=== PATIENT | male | born 1940 | race Hispanic/Latino ===

== ENCOUNTER → 2018-01-18 | Outpatient (CLI) | payer MEDICARE ==
[~2018-01-18] MED LIST: FESO8TAB PO; TERAZOSIN PO
== END | disposition home or self-care (01) ==
LOC: RAH 12:19
PROVIDERS: ATTEND Physical Medicine & Rehabilitation
DX: M51.17 Intervertebral disc disorders with radiculopathy, lumbosacral region (principal); M47.22 Other spondylosis with radiculopathy, cervical region; M48.02 Spinal stenosis, cervical region; M25.78 Osteophyte, vertebrae; M43.16 Spondylolisthesis, lumbar region; M48.07 Spinal stenosis, lumbosacral region
CPT/HCPCS: 72050; 72110

== ENCOUNTER → 2019-09-10 | Outpatient (CLI) | payer MEDICARE ==
[~2019-09-10] MED LIST changes: +REGADENOSON 0.4 MG/5 ML PF SYG IVP SCH
== END | disposition home or self-care (01) ==
LOC: SHCH 07:35
PROVIDERS: ATTEND Internal Medicine Cardiovascular Disease
DX: I20.0 Unstable angina (principal)
CPT/HCPCS: 78452; 93017; 96374; A9500 ×2; J2785

== ENCOUNTER → 2019-09-18 | Outpatient (CLI) | payer MEDICARE ==
[~2019-09-18] MED LIST changes: -REGADENOSON 0.4 MG/5 ML PF SYG IVP SCH
== END | disposition home or self-care (01) ==
LOC: SHCH 13:31
PROVIDERS: ATTEND Internal Medicine Cardiovascular Disease
DX: I10 Essential (primary) hypertension (principal)
CPT/HCPCS: 93306; 93356

== ENCOUNTER → 2022-02-01 | Outpatient (CLI) | payer MEDICARE | END | disposition home or self-care (01) | LOC: SHCH 11:02 | PROVIDERS: ATTEND Internal Medicine Cardiovascular Disease | DX: I70.293 Other atherosclerosis of native arteries of extremities, bilateral legs (principal) | CPT/HCPCS: 93925 ==

== ENCOUNTER 2022-05-24 13:56 | Emergency (ER) | payer MEDICARE ==
[~2022-05-24] VITALS: Ht 182.9 cm; Wt 99.8 kg
[2022-05-24 14:16] LABS: BASOPHILS % (AUTO) 0.3 % (0.0-5.0); EOSINOPHILS % (AUTO) 1.7 % (0.0-8.0); HEMATOCRIT 39.8 % (42-54); LYMPHOCYTES % (AUTO) 22.6 % (21.0-51.0); MEAN CORPUSCULAR HEMOGLOBIN 31.5 pg (27.0-33.0); MEAN CORPUSCULAR HGB CONC 35.4 g/dL (32.0-36.0); MONOCYTES % (AUTO) 9.7 % (3.0-13.0); NEUTROPHILS % (AUTO) 65.4 % (40.0-77.0); PLATELET COUNT (AUTO) 178 K/uL (130-400); RED BLOOD CELL COUNT(AUTO) 4.47 MIL/uL (4.50-6.20); RED CELL DISTRIBUTION WIDTH 12.3 % (11.0-15.5); WHITE BLOOD COUNT (AUTO) 5.8 K/uL (4.8-10.8)
[2022-05-24 14:33] LABS: INR 0.96 (0.85-1.15); PROTHROMBIN TIME 10.5 SEC (9.6-11.6)
[2022-05-24 14:34] LABS: PARTIAL THROMBOPLASTIN TIME 29.1 SEC (26.3-35.5)
[2022-05-24 14:39] LABS: B-TYPE NATRIURETIC PEPTIDE 107 pg/mL (0-100)
[2022-05-24 14:45] LABS: CREATININE 1.2 mg/dL (0.5-1.5); POTASSIUM 3.9 mmol/L (3.5-5.1)
[2022-05-24 14:54] LABS: ALBUMIN 4.1 g/dL (3.5-5.0); TOTAL PROTEIN, SERUM 7.5 g/dL (6.0-8.3)
[2022-05-24] MEDS ORDERED: CLOPIDOGREL 75MG TAB PO STA (15:01)
[2022-05-24] MEDS ORDERED: ASPIRIN 81MG CHEW TAB PO STA (15:01)
[2022-05-24] MEDS ORDERED: ATORVASTATIN 40 MG TABLET PO STA (15:01)
[2022-05-24] MEDS ORDERED: IOHEXOL 350 MG/ML 100ML INFUS..BTL IV ONE (15:11)
[2022-05-24 16:12] LABS: APPEARANCE,URINE CLEAR (CLEAR); BILIRUBIN,URINE NEGATIVE (NEGATIVE); COLOR,URINE YELLOW (YELLOW); GLUCOSE, URINE (UA) NEGATIVE (NEGATIVE); KETONES,URINE NEGATIVE (NEGATIVE); LEUKOCYTE ESTERASE ,URINE NEGATIVE Leu/uL (NEGATIVE); NITRATE,URINE NEGATIVE (NEGATIVE); OCCULT BLOOD,URINE NEGATIVE (NEGATIVE); PROTEIN,URINE NEGATIVE (NEGATIVE); UROBILINOGEN,URINE 0.2 mg/dL (0.2-1.0)
[2022-05-24] MEDS ORDERED: GADOTERATE MEGLUMINE 10 MMOL/20 ML VIAL IV ONE (18:34)
[2022-05-24] MEDS ORDERED: LORAZEPAM 2 MG/ML 1 ML VIAL ONE (18:42)
[2022-05-24] MEDS ORDERED: LORAZEPAM 2 MG/ML 1 ML VIAL IVP ONE (19:00)
[2022-05-25] MEDS ORDERED: HYDRALAZINE 20MG/ML VIAL IV ONE (01:30)
[2022-05-25 12:04] VITALS: BP 166/78
[2022-05-25] MEDS ORDERED: ASPIRIN 81 MG EC TAB PO ONE (14:00)
== END 2022-05-25 20:11 | disposition left against medical advice (07) ==
LOC: EDH 13:56
DX: G45.9 Transient cerebral ischemic attack, unspecified (principal); I10 Essential (primary) hypertension; E78.5 Hyperlipidemia, unspecified; Z79.82 Long term (current) use of aspirin; Z20.822 Contact with and (suspected) exposure to COVID-19
CPT/HCPCS: 70551; 99285; 70450; 96374; 71045; 87635; 82550; 83721; 84484; 80053; 83880; 85025; 85610; 85730; 82948; 81003; 36415; 70496; 70498; 70549; 93005; 96375; C9803; J2060; Q9967; A9575; J0360

== ENCOUNTER → 2022-10-14 | Outpatient (CLI) | payer MEDICARE ==
[2022-10-14 13:56] LABS: BASOPHILS % (AUTO) 0.3 % (0.0-5.0); EOSINOPHILS % (AUTO) 2.4 % (0.0-8.0); HEMATOCRIT 36.2 % (42-54); LYMPHOCYTES % (AUTO) 18.6 % (21.0-51.0); MEAN CORPUSCULAR HEMOGLOBIN 30.4 pg (27.0-33.0); MEAN CORPUSCULAR HGB CONC 32.3 g/dL (32.0-36.0); MONOCYTES % (AUTO) 8.6 % (3.0-13.0); NEUTROPHILS % (AUTO) 69.5 % (40.0-77.0); PLATELET COUNT (AUTO) 188 K/uL (130-400); RED BLOOD CELL COUNT(AUTO) 3.85 MIL/uL (4.50-6.20); WHITE BLOOD COUNT (AUTO) 6.3 K/uL (4.8-10.8)
[2022-10-14 14:21] LABS: ALBUMIN 3.7 g/dL (3.5-5.0); CREATININE 1.6 mg/dL (0.5-1.5); POTASSIUM 4.6 mmol/L (3.5-5.1)
== END | disposition home or self-care (01) ==
LOC: LAB 10:39
PROVIDERS: ATTEND Physician Assistant
DX: I25.810 Atherosclerosis of coronary artery bypass graft(s) without angina pectoris (principal)
CPT/HCPCS: 36415; 80053; 85025

== ENCOUNTER → 2024-01-02 | Outpatient (CLI) | payer OTHER, MEDICARE | END | disposition home or self-care (01) | LOC: SHCH 13:00 | PROVIDERS: ATTEND Internal Medicine Cardiovascular Disease | DX: I70.293 Other atherosclerosis of native arteries of extremities, bilateral legs (principal) | CPT/HCPCS: 93925 ==

== ENCOUNTER → 2024-01-24 | Outpatient (CLI) | payer OTHER, MEDICARE ==
[~2024-01-24] MED LIST changes: +IOHEXOL 350 MG/ML 100ML INFUS..BTL IV ONE; +IOHEXOL-350 50ML VIAL IV ONE
== END | disposition home or self-care (01) ==
LOC: RAH 08:24 → EDSTATUS 08:30
PROVIDERS: ATTEND Internal Medicine Cardiovascular Disease
DX: I70.203 Unspecified atherosclerosis of native arteries of extremities, bilateral legs (principal); I70.0 Atherosclerosis of aorta; K57.30 Diverticulosis of large intestine without perforation or abscess without bleeding
CPT/HCPCS: 75635; Q9967 ×2

== ENCOUNTER → 2024-01-26 | Outpatient (CLI) | payer OTHER, MEDICARE ==
[~2024-01-26] MED LIST changes: -IOHEXOL 350 MG/ML 100ML INFUS..BTL IV ONE; -IOHEXOL-350 50ML VIAL IV ONE
[2024-01-26 12:07] LABS: BASOPHILS # (AUTO) 0.03 K/uL (0.00-0.20); BASOPHILS % (AUTO) 0.6 % (0.0-5.0); EOSINOPHILS # (AUTO) 0.15 K/uL (0.00-0.70); HEMATOCRIT 36.6 % (42-54); IMMATURE GRANULOCYTE ABSOLUTE 0.04 K/uL (0-1); LYMPHOCYTES # (AUTO) 1.1 K/uL (1.0-4.8); LYMPHOCYTES % (AUTO) 21.5 % (21.0-51.0); MEAN CORPUSCULAR HEMOGLOBIN 31.6 pg (27.0-33.0); MEAN CORPUSCULAR HGB CONC 34.2 g/dL (32.0-36.0); MEAN CORPUSCULAR VOLUME 92.4 fL (79-99); MONOCYTES # (AUTO) 0.5 K/uL (0.1-1.0); MONOCYTES % (AUTO) 9.4 % (3.0-13.0); NEUTROPHILS # (AUTO) 3.2 K/uL (1.8-7.7); NEUTROPHILS % (AUTO) 64.7 % (40.0-77.0); PLATELET COUNT (AUTO) 183 K/uL (130-400); RED BLOOD CELL COUNT(AUTO) 3.96 MIL/uL (4.50-6.20); RED CELL DISTRIBUTION WIDTH 13.2 % (11.0-15.5)
[2024-01-26 12:15] LABS: INR 1.02 (0.85-1.15)
[2024-01-26 12:17] LABS: PARTIAL THROMBOPLASTIN TIME 32.7 SEC (26.3-35.5)
[2024-01-26 12:24] LABS: CREATININE 1.2 mg/dL (0.5-1.3); POTASSIUM 4.8 mmol/L (3.5-5.1)
== END | disposition home or self-care (01) ==
LOC: LAB 09:45
PROVIDERS: ATTEND Internal Medicine Cardiovascular Disease
DX: I10 Essential (primary) hypertension (principal); I73.9 Peripheral vascular disease, unspecified; I25.810 Atherosclerosis of coronary artery bypass graft(s) without angina pectoris; I50.9 Heart failure, unspecified
CPT/HCPCS: 36415; 80048; 85025; 85610; 85730

== ENCOUNTER → 2024-05-01 | Outpatient (CLI) | payer OTHER, MEDICARE ==
[2024-05-01 16:13] LABS: BASOPHILS # (AUTO) 0.03 K/uL (0.00-0.20); BASOPHILS % (AUTO) 0.5 % (0.0-5.0); EOSINOPHILS # (AUTO) 0.13 K/uL (0.00-0.70); EOSINOPHILS % (AUTO) 2.1 % (0.0-8.0); HEMATOCRIT 36.5 % (42-54); IMMATURE GRANULOCYTE ABSOLUTE 0.05 K/uL (0-1); LYMPHOCYTES # (AUTO) 1.2 K/uL (1.0-4.8); LYMPHOCYTES % (AUTO) 19.8 % (21.0-51.0); MEAN CORPUSCULAR HEMOGLOBIN 32.3 pg (27.0-33.0); MEAN CORPUSCULAR VOLUME 95.1 fL (79-99); MONOCYTES # (AUTO) 0.5 K/uL (0.1-1.0); MONOCYTES % (AUTO) 8.7 % (3.0-13.0); NEUTROPHILS # (AUTO) 4.2 K/uL (1.8-7.7); NEUTROPHILS % (AUTO) 68.1 % (40.0-77.0); PLATELET COUNT (AUTO) 211 K/uL (130-400); RED BLOOD CELL COUNT(AUTO) 3.84 MIL/uL (4.50-6.20); RED CELL DISTRIBUTION WIDTH 12.9 % (11.0-15.5); WHITE BLOOD COUNT (AUTO) 6.1 K/uL (4.8-10.8)
[2024-05-01 16:23] LABS: INR 1.03 (0.85-1.15); PROTHROMBIN TIME 11.1 SEC (9.6-11.6)
[2024-05-01 16:40] LABS: CREATININE 1.2 mg/dL (0.5-1.3); POTASSIUM 4.5 mmol/L (3.5-5.1)
== END | disposition home or self-care (01) ==
LOC: LAB 14:35
PROVIDERS: ATTEND Student in an Organized Health Care Education/Training Program
DX: I10 Essential (primary) hypertension (principal); I73.9 Peripheral vascular disease, unspecified; I48.0 Paroxysmal atrial fibrillation; Z79.899 Other long term (current) drug therapy
CPT/HCPCS: 36415; 80048; 85025; 85610; 85730

== ENCOUNTER → 2024-05-15 | Outpatient (CLI) | payer OTHER, MEDICARE | END | disposition home or self-care (01) | LOC: RAH 10:51 | PROVIDERS: ATTEND Internal Medicine | DX: M79.662 Pain in left lower leg (principal) | CPT/HCPCS: 93971 ==

== ENCOUNTER → 2024-05-29 | Outpatient (CLI) | payer OTHER, MEDICARE ==
[2024-05-29 12:33] LABS: ALBUMIN 3.6 g/dL (3.5-5.0); BILIRUBIN,TOTAL 0.6 mg/dL (0.2-1.0); CREATININE 1.1 mg/dL (0.5-1.3); POTASSIUM 4.3 mmol/L (3.5-5.1); TOTAL PROTEIN, SERUM 6.7 g/dL (6.0-8.3)
== END | disposition home or self-care (01) ==
LOC: LAB 08:23
PROVIDERS: ATTEND Student in an Organized Health Care Education/Training Program
DX: I25.810 Atherosclerosis of coronary artery bypass graft(s) without angina pectoris (principal); I73.9 Peripheral vascular disease, unspecified; Z79.899 Other long term (current) drug therapy
CPT/HCPCS: 36415; 80053; 80061; 83036

== ENCOUNTER → 2024-06-11 | Outpatient (CLI) | payer OTHER, MEDICARE | END | disposition home or self-care (01) | LOC: SHCH 14:23 | PROVIDERS: ATTEND Student in an Organized Health Care Education/Training Program | DX: I25.810 Atherosclerosis of coronary artery bypass graft(s) without angina pectoris (principal); R60.9 Edema, unspecified | CPT/HCPCS: 93306 ==

== ENCOUNTER → 2025-01-03 | Outpatient (CLI) | payer OTHER, MEDICAID ==
--- NOTE | 2025-01-03 16:24 | HMCIMG ---
MR SHOULDER RIGHT WO HISTORY: Shoulder pain COMPARISON: None TECHNIQUE: MRI of the right shoulder was performed utilizing multiple pulse sequences in axial, coronal and sagittal planes. Patient was not given contrast through intravenous route. FINDINGS: No abnormal signal intensity is seen of the visualized bony structure. Hypertrophic degenerative changes are seen of the acromioclavicular joint. There is downward sloping of acromion in a medial to lateral direction encroaching upon the rotator cuff tendon and muscles. There are at least rotator cuff tendinosis with partial-thickness undersurface tear. Findings are suggestive of complete rotator cuff tendon. There is small amount of fluid is seen in the subacromial-subdeltoid bursal complex. The glenoid labrum is intact. Bicipital tendon is seen within its groove. And a joint effusion seen. There is fluid in the biceps tendon sheath may be related to biceps tenosynovitis. IMPRESSION: 1. There are at least rotator cuff tendinosis with partial-thickness undersurface tear. Findings are suggestive of complete rotator cuff tendon. There is small amount of fluid is seen in the subacromial-subdeltoid bursal complex. Needed, MR arthrogram may be helpful. Tiny joint effusion is seen.
== END | disposition home or self-care (01) ==
LOC: RAH 13:16
PROVIDERS: ATTEND Internal Medicine
DX: M25.511 Pain in right shoulder (principal)
CPT/HCPCS: 73221

== ENCOUNTER → 2025-05-20 | Outpatient (CLI) | payer OTHER, MEDICAID ==
--- NOTE | 2025-05-20 14:34 | HMCIMG ---
EXAM: MRI BRAIN WITHOUT INTRAVENOUS CONTRAST Technique: Magnetic resonance imaging of the brain performed in axial and sagittal planes with T1-, T2-, diffusion-weighted imaging, and FLAIR sequences; coronal reformations reviewed as available. Contrast: No intravenous contrast administered. Clinical Information: Headache, unspecified. Findings: Brain: Scattered nonspecific foci of high T2/FLAIR signal in the periventricular and subcortical white matter, most compatible with chronic small-vessel ischemic change; no restricted diffusion to suggest acute infarction; no intra-axial mass or mass effect; no acute intracranial hemorrhage. Ventricles and extra-axial spaces: Ventricles and basal cisterns are normal in size and configuration for age; no extra-axial fluid collection; no midline shift. Posterior fossa/brainstem: Brainstem and cerebellum are unremarkable; no cerebellopontine angle mass. Orbits: No intraorbital abnormality identified. Paranasal sinuses and mastoid air cells: Paranasal sinuses are clear; fluid signal in the mastoid air cells bilaterally, greater on the right, suggestive of mastoid effusions/mastoiditis IMPRESSION: 1. Bilateral mastoid effusions, right greater than left, possibly reflecting mastoiditis. Clinical correlation and otolaryngology evaluation as indicated. 2. Scattered nonspecific foci of high T2/FLAIR signal in periventricular and subcortical white matter, consistent with chronic small-vessel ischemic changes. 3. No evidence of acute infarction, intracranial hemorrhage, or mass effect. 4. Ventricles and extra-axial spaces normal for age. 5. Unremarkable brainstem and cerebellum. 6. No intraorbital abnormality identified. 7. Paranasal sinuses are clear. /[place]
== END | disposition home or self-care (01) ==
LOC: RAH 08:09
PROVIDERS: ATTEND Family Medicine
DX: I67.82 Cerebral ischemia (principal); G93.6 Cerebral edema; R51.9 Headache, unspecified; R41.3 Other amnesia
CPT/HCPCS: 70551

== ENCOUNTER → 2025-06-09 | Outpatient (CLI) | payer OTHER, MEDICAID ==
--- NOTE | 2025-06-09 20:14 | HMCIMG ---
STUDY: X-RAY OF THE LUMBAR SPINE, 5 VIEWS HISTORY: Sciatic pain. TECHNIQUE: AP, lateral, oblique, and lumbosacral spot views of the lumbar spine are submitted for interpretation. COMPARISON: None provided. FINDINGS: Alignment: Mild anterolisthesis of L4 on L5. Overall lumbar alignment is otherwise preserved without gross scoliosis or focal kyphotic deformity. Bones and joints: Multilevel degenerative changes are present with anterior and posterior osteophytosis and intervertebral disc space narrowing throughout the lumbar spine, most severe at L5???S1. Multilevel facet joint hypertrophy is noted, more pronounced in the lower lumbar levels. Vertebral body heights are maintained without definite acute compression fracture or destructive osseous lesion. Soft tissues: Visualized paraspinal soft tissues are unremarkable. Mild calcification of the abdominal aorta is noted, compatible with underlying atherosclerotic vascular disease. IMPRESSION: * Multilevel lumbar spondylosis with disc space narrowing and osteophyte formation, most severe at L5???S1. * Multilevel facet arthropathy, more pronounced in the lower lumbar spine, which may contribute to mechanical low back pain. * Mild anterolisthesis of L4 on L5, likely degenerative in nature. * Mild aortic calcification, consistent with chronic atherosclerotic change. * No definite acute lumbar spine fracture identified. Given the history of sciatic pain and the degree of degenerative change, MRI of the lumbar spine is recommended for evaluation of nerve root compression and spinal canal/foraminal stenosis. /[place]
== END | disposition home or self-care (01) ==
LOC: RAH 10:40
PROVIDERS: ATTEND Family Medicine
DX: M47.817 Spondylosis without myelopathy or radiculopathy, lumbosacral region (principal); M25.78 Osteophyte, vertebrae; M43.16 Spondylolisthesis, lumbar region; M54.40 Lumbago with sciatica, unspecified side; I70.0 Atherosclerosis of aorta; M48.07 Spinal stenosis, lumbosacral region
CPT/HCPCS: 72100